=== PATIENT | male | born 1980 | race Asian ===

== ENCOUNTER 2023-12-19 09:00 | Outpatient (AMB) | payer OTHER, SELFPAY ==
[2023-12-19 09:10] VITALS: BP 130/72; PULSE 96; O2SAT 99; BMI 26.4
--- NOTE | 2023-12-19 09:10 | A.OFFPC_ITS ---
Vital Signs 12/19/23 09:10 Height 5 ft 6.54 in Weight 166 lb 0.8 oz BMI 26.4 BP 130/72 Blood Pressure Location Lt brachial Position Sitting Pulse 96 Pulse Source Pulse Oximeter Pulse Oximetry (%) 99 Oxygen Delivery Method Room Air Intake Visit Reasons: New patient-Establish Care Allergies No Known Allergies Allergy (Verified 12/19/23 09:24) Medication List - Last Reconciled 12/19/23 by Andi Sigala MD amlodipine 10 mg PO DAILY aspirin 81 mg PO DAILY atorvastatin 20 mg PO DAILY Tobacco use date assessed: 12/19/23 Dental Screening Dental Screen Date: 12/19/23 Did you have a dental visit in the last 12 months?: Yes Did you have a dental problem in the last 6 months where you did not have access to dental care?: No Was dental information given to patient?: Patient has dentist HPI New patient-Establish Care HPI Details Patient comes in today to establish care - is a new patient to the practice He reportedly went to the ER at [facility] back in April 2023 for intermittent left-sided chest pains and discomfort He initially went to urgent care and was reportedly found to have ST elevation on EKG and was advised to go to the ER for further evaluation He was eventually admitted for further evaluation Cardiac workups done at the hospital were mostly reportedly negative although his EKG suggested possible LVH He underwent coronary angiography on 04/19/2023 which revealed NO significant obstruction with only mild atherosclerotic disease noted He was then advised to quit smoking, which he has done and has not smoked since, as well as aggressive secondary risk factor modification Patient states that he currently feels okay He denies any headaches or dizziness Denies any sore throat or any recent cough / cold symptoms but patient reports that he has been experiencing frequent runny nose and clear nasal drainage over the past few years He initially thought that it was due to spring allergies or allergies to pollen but has noticed lately that he has similar symptoms often in the winter when pollens should no longer be a significant cause for allergies Denies any chest pains, no SOB No nausea/vomiting, no abdominal pain No change in bowel habits noted Needs a few of his Rx refilled Adds that he has not had any follow up labs done in a while and also has not seen cardiology for follow up since his cardiac catheterization back in April of 2023 His also adds that she has noticed that he would stop breathing briefly at times when he is asleep at night - states that she feels that this has been happening more and more often lately and she would like for him to be checked out for sleep apnea [facility] Medical History (Updated 12/22/23 @ 17:16 by Andi Sigala MD) Allergic rhinitis Overweight (BMI 25.0-29.9) Hx of coronary angiogram Nonobstructive cardiomyopathy Essential hypertension Surgical History (Updated 12/19/23 @ 09:41 by Andi Sigala MD) No pertinent past surgical history Family History (Updated 12/22/23 @ 16:55 by Andi Sigala MD) Other Family history non-contributory Social History Housing: House Patient Tobacco Use Status: Former Tobacco user Quit Date: 04/2023 service: No Current occupational status: unemployed Cognitive needs: No Hearing needs: No Vision needs: No Questionnaire PHQ-9 Over the last 2 weeks, how often have you been bothered by any of the following problems? 1. Little interest or pleasure in doing things: not at all 2. Feeling down, depressed, or hopeless: several days 3. Trouble falling or staying asleep, or sleeping too much: not at all 4. Feeling tired or having little energy: not at all 5. Poor appetite or overeating: not at all 6. Feeling bad about yourself - or that you are a failure or have let yourself or your family down: not at all 7. Trouble concentrating on things, such as reading the newspaper or watching television: not at all 8. Moving or speaking so slowly that other people could have noticed. Or the opposite - being so fidgety or restless that you have been moving around a lot more than usual: not at all 9. Thoughts that you would be better off or of hurting yourself in some way: not at all Total score: 1 Depression Screening Interpretation: Negative Depression Screening Done: Yes 28189 - PHQ-9 Billing: Yes Source: Developed by Drs. Paul Jin, Taty Turpin, Rob Oseguera and colleagues, with an educational neil from [employer]. Thrive Questionnaire Date Thrive assessed: 12/19/23 I am a: Patient What is your living situation today?: I have a steady place to live Within the past 12 months, did the food you bought not last and you didn't have the money to get more?: Never true Within the past 12 months, did you worry whether your food would run out before you got money to buy more?: Never true Do you have trouble paying for medicines?: No Do you have trouble getting transportation to medical appointments?: No Do you have trouble paying your heating and electricity bill?: No Do you have trouble taking care of your child, family member or friend?: No Do you have trouble with day-to-day activities such as bathing, preparing meals, shopping, managing finances, etc.?: No Are you currently unemployed and looking for a job?: No Are you interested in more education?: No Please select the resources that you would like help with: None Currently or been in a relationship where the following occur: no concerns reported THRIVE Score: 0 AUDIT C Alcohol Use Questionnaire (AUDIT-C) 1. How often do you have a drink containing alcohol?: Never 3. How often do you have six or more drinks on one occasion?: Never Total Score: 0 Score Reviewed/Action Taken: Yes KAROLINE-7 AMB Questionnaire KAROLINE-7 Date KAROLINE - 7 assessed: 12/19/23 Feeling nervous, anxious, or on edge: 0 = Not at all Not being able to stop or control worryin = Several days Worrying too much about different things: 0 = Not at all Trouble relaxin = Not at all Being so restless that it is hard to sit still: 0 = Not at all Becoming easily annoyed or irritable: 0 = Not at all Feeling afraid as if something awful might happen: 0 = Not at all Total KAROLINE-7 score (0-4 normal; 5-9 mild; 10-14 moderate; 15-21 severe): 1 Source: Developed by Drs. Paul Jin, Taty Turpin, Rob Oseguera and colleagues, with an educational neil from [employer]. KAROLINE-7 Assessment Billing KAROLINE-7 Assessment Tool: KAROLINE-7 Assessment 79136 Review of Systems Const Denies chills, Denies fatigue, Denies fever(s), Denies headache(s) and Reports stops breathing during sleep (on and off, per his ) ENT Denies dysphagia, Denies dizziness, Denies otalgia, Denies headache(s), Reports nasal discharge (frequent, mostly watery and clear), Denies neck pain, Denies odynophagia and Denies sore throat Card Denies chest pain, Denies palpitations and Denies dyspnea Resp Denies cough and Denies dyspnea GI Denies abdominal pain, Denies constipation, Denies dysphagia, Denies heartburn, Denies diarrhea, Denies nausea, Denies odynophagia and Denies vomiting Denies dysuria, Denies nocturia and Denies urinary frequency Musc Denies back pain and Denies neck pain Skin/Breast Denies rash Neuro Denies dizziness and Denies headache(s) Endo Denies fatigue and Denies palpitations Physical exam (Primary Care) Vital Signs: Last Vital Signs Pulse 96 12/19/23 09:10 BP 130/72 12/19/23 09:10 Pulse Ox 99 12/19/23 09:10 Oxygen Delivery Method Room Air 12/19/23 09:10 BMI result Body Mass Index 26.4 Tobacco/Smoking Status: Tobacco use Status Tobacco use date assessed 12/19/23 12/19/23 09:16 Patient Tobacco Use Status Former Tobacco user 12/19/23 09:16 PHQ-9: PHQ-9 Score PHQ-9: Total score 1 12/19/23 10:10 Depression Screening Interpretation: Negative Thrive Assessment: Date of Thrive Assessment Date Thrive assessed 12/19/23 12/19/23 09:16 Currently or been in a relationship where the following occur: no concerns reported Const General: no acute distress and alert HENMT Ears: TM's normal bilaterally and EAC's normal Throat: Yes posterior oropharynx normal and Yes tonsils normal (no TP congestion) Neck Neck: Yes no lymphadenopathy and Yes supple Thyroid: Thyroid normal Resp Auscultation: clear to auscultation bilaterally, no rales and no wheezes Cardio Rate: regular rate Rhythm: regular rhythm Heart sounds: no murmurs GI Palpation (GI): Soft to palpation and nontender Auscultation: normal bowel sounds General: Yes no CVA tenderness Back/Spine/Pelvis Back: no CVA tenderness Thoracic/Lumbar Spine: No lumbar spinal tenderness Skin Rashes: no rashes Extrem General: Yes no clubbing, cyanosis or edema Assessment and Plan Assessment & Plan (1) Nonobstructive cardiomyopathy: Code(s): I42.8 - Other cardiomyopathies Plan: Coronary angiography done on 04/19/2023 revealed mild coronary disease with no significant obstruction Continue aggressive secondary risk factor modification, including blood pressure and cholesterol He has since quit smoking and states that he continues to work on his diet and tries to stay active when he can and his time allows as 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 [employer] Reinforced low cholesterol/cardiac diet Continue Atorvastatin 20 mg QD Will have him recheck his labs KETAN as he has not had any follow up labs done since April 2023 He also has reportedly not seen cardiology since his hospital admission last year and will refer him to cardiology for follow up and continuing management - patient prefers to go to [facility] Cardiology as it is closer to home Will also have him recheck his labs and fasting lipids in 4 months for follow up (2) Essential hypertension: Code(s): I10 - Essential (primary) hypertension Plan: Reinforced low sodium diet - goal is systolic BP of 120 mm or less Continue Amlodipine 10 mg QD Patient is instructed to continue monitoring his blood pressure regularly (3) Allergic rhinitis: Code(s): J30.9 - Allergic rhinitis, unspecified Qualifiers: Allergic rhinitis trigger: unspecified Allergic rhinitis seasonality: non-seasonal Qualified Code(s): J30.89 - Other allergic rhinitis Plan: Will start him on Loratadine 10 mg QD PRN - is advised that he can get this OTC if his insurance declines to cover this Rx (4) Witnessed apneic spells: Code(s): R06.81 - Apnea, not elsewhere classified Plan: Will refer him to Sleep Medicine (at [facility] - per request) for further evaluation and management of his symptoms, which are suggestive of ESTEBAN (5) Overweight (BMI 25.0-29.9): Code(s): E66.3 - Overweight Plan: Reinforced diet/exercise as tolerated/lose weight Plan Follow up in 4 months Orders: Orders Comprehensive [place]. Panel Fast 12/19/23 E78.00 - Pure hypercholesterolemia, unspecified, I42.8 - Other cardiomyopathies Lipid Panel 12/19/23 E78.00 - Pure hypercholesterolemia, unspecified, I42.8 - Other cardiomyopathies TSH reflex Free T4 12/19/23 E78.00 - Pure hypercholesterolemia, unspecified, I42.8 - Other cardiomyopathies UA CC w/rflx Micro + Cult 12/19/23 I42.8 - Other cardiomyopathies, R30.0 - Dysuria Lipid Panel 4 Months E78.00 - Pure hypercholesterolemia, unspecified Complete Blood Count Auto Diff 12/19/23 D64.9 - Anemia, unspecified, I42.8 - Other cardiomyopathies Vitamin D 25-OH Total 12/19/23 E55.9 - Vitamin D deficiency, unspecified, I42.8 - Other cardiomyopathies Comprehensive [place]. Panel Fast 4 Months E78.00 - Pure hypercholesterolemia, unspecified Referrals Cardiology Referral I10 - Essential (primary) hypertension, I42.8 - Other cardiomyopathies Sleep Medicine Referral R06.81 - Apnea, not elsewhere classified, R06.83 - Snoring, Z82.0 - Family history of epilepsy and other diseases of the nervous system Medications: New atorvastatin 20 mg PO DAILY 90 tabs 1RF 90 days loratadine 10 mg PO DAILY PRN 90 tabs 3RF allergy symptoms 90 days J30.9 - Allergic rhinitis, unspecified amlodipine 10 mg PO DAILY 90 tabs 1RF 90 days Coding Level of Care Code New Pt Level 4 (92232) Diagnoses Nonobstructive cardiomyopathy I42.8 Essential hypertension I10 Non-seasonal allergic rhinitis, unspecified trigger J30.89 Allergic rhinitis trigger: unspecified Allergic rhinitis seasonality: non-seasonal Witnessed apneic spells R06.81 Overweight (BMI 25.0-29.9) E66.3 Additional Codes KAROLINE-7 Assessment Billing - KAROLINE-7 Assessment Tool: KAROLINE-7 Assessment [id number] ([id number])
== END 2023-12-19 10:15 | disposition home or self-care (01) ==
PROVIDERS: PCP Internal Medicine; Visit Provider Internal Medicine
DX: I42.8 Other cardiomyopathies (principal); I10 Essential (primary) hypertension; J30.89 Other allergic rhinitis; R06.81 Apnea, not elsewhere classified; E66.3 Overweight
CPT/HCPCS: 99204

== ENCOUNTER 2023-12-23 10:37 | Outpatient (REF) | payer OTHER, SELFPAY ==
[2023-12-23 10:46] LABS: MANUAL DIFF FLAG NO
[2023-12-23 11:13] LABS: Basophils Percent Auto 0.4 % (0-2); Eosinophils Absolute Auto 0.2 X10*3/uL (0.0-0.4); Eosinophils Percent Auto 3.5 % (0-4); Hematocrit 45.9 % (42.0-52.0); Hemoglobin 15.6 g/dl (14.0-18.0); Imm Gran Abs Auto 0.02 X10*3/uL (0.00-0.03); Imm Gran Pct Auto 0.3 % (0.0-0.4); Lymphocytes Absolute Auto 1.7 X10*3/uL (1.2-4.9); Mean Corpuscular Hemoglobin 29.5 pg (27.0-33.0); Mean Corpuscular Volume 86.9 fL (80.0-98.0); Mean Platelet Volume 9.2 fL (9.4-12.4); Monocytes Absolute Auto 0.5 X10*3/uL (0.1-1.2); Monocytes Percent Auto 6.5 % (2-11); Neutrophils Absolute Auto 4.5 x10*3/uL (2.0-8.3); Neutrophils Percent Auto 64.3 % (45-73); Platelet Count 246 X10*3/uL (160-400); Red Blood Count 5.28 X10*6/uL (4.60-5.80); Red Cell Distribution Width 12.3 % (11.0-16.0)
[2023-12-23 11:15] LABS: Appearance Urine Clear; Color Urine Yellow; Glucose Urine UA Negative (Negative); Leukocyte Esterase Urine Negative (Negative); Nitrite Urine Negative (Negative); PH 5.5 (5.0-9.0); Urine Blood Negative (Negative); Urine Ketones Negative (Negative); Urine Protein Negative (Neg-Trace)
[2023-12-23 11:53] LABS: Alanine Aminotransferase 31 U/L (0-40); Albumin Level 4.3 g/dL (3.5-5.0); Alkaline Phosphatase 62 U/L (39-117); Anion Gap 10 (12-20); Aspartate Amino Transferase 23 U/L (5-37); Bilirubin Total 0.9 mg/dL (0.0-1.0); Blood Urea Nitrogen 16 mg/dL (9-16); Calcium 9.1 mg/dL (8.4-10.2); Carbon Dioxide 25 mmol/L (22-29); Chloride 109 mmol/L (96-108); Cholesterol 129 mg/dL (<200); Estimated Glomerular Filt Rate > 60; Glucose Fasting 92 mg/dL (60-99); HDL Cholesterol 46 mg/dL (>40); LDL Cholesterol Calculated 68 mg/dL (<100); Potassium 4.1 mmol/L (3.3-5.1); Sodium 140 mmol/L (135-145); Total Protein 7.1 g/dL (6.5-8.0); Triglycerides 77 mg/dL (<150)
[2023-12-23 12:09] LABS: TSH reflex Free T4 1.15 uIU/mL (0.32-4.0); Vitamin D 25-OH Total 23.2 ng/mL (>30)
== END 2023-12-23 10:38 | disposition home or self-care (01) ==
LOC: HO.LAB 10:37
PROVIDERS: PCP Internal Medicine; Visit Provider Internal Medicine
DX: E78.00 Pure hypercholesterolemia, unspecified (principal); I42.8 Other cardiomyopathies; D64.9 Anemia, unspecified; R30.0 Dysuria; E55.9 Vitamin D deficiency, unspecified
CPT/HCPCS: 36415; 80053; 80061; 81003; 82306; 84443; 85025

== ENCOUNTER 2024-05-11 08:56 | Outpatient (AMB) | payer OTHER, SELFPAY ==
[2024-05-11 08:59] VITALS: BP 130/86; PULSE 70; O2SAT 98; BMI 25.7
--- NOTE | 2024-05-11 08:59 | MHC.PC.OV ---
Vital Signs 05/11/24 08:59 Height 5 ft 6.54 in Weight 162 lb BMI 25.7 BP 130/86 Blood Pressure Location Lt brachial Position Sitting Pulse 70 Pulse Source Pulse Oximeter Pulse Oximetry (%) 98 Oxygen Delivery Method Room Air Intake Visit Reasons: 4mof\u Heel Scorer Required: No Accompanied by: Self / Same As Patient Allergies No Known Allergies Allergy (Verified 05/11/24 09:24) Medication List - Last Reconciled 05/11/24 by Andi Sigala MD amlodipine 10 mg PO DAILY 90 days aspirin 81 mg PO DAILY atorvastatin 20 mg PO DAILY 90 days clotrimazole-betamethasone 1-0.05 % 1 appl topical BID 2 weeks loratadine 10 mg PO DAILY PRN 90 days Tobacco use date assessed: 05/11/24 Dental Screening Dental Screen Date: 05/11/24 Did you have a dental visit in the last 12 months?: Yes Did you have a dental problem in the last 6 months where you did not have access to dental care?: No Was dental information given to patient?: Patient has dentist HPI 4mof\u HPI Details Patient comes in today for his follow up visit He went to the ER in [facility] about a month ago when he woke up with sudden onset of right flank pain Work ups done revealed a small 4 mm right-sided kidney without any significant hydropnephrosis and due to the size of his stone, was recommended conservative management He was sent home with Rx for Tamsulosin for a few weeks and was advised that he should be able to notice it when he passes out the stone although patient has not felt anything since States that his right flank pain has completely cleared up and is wondering that since he did not feel himself passing out the stone if he should go and get checked again for the stone Adds that he has been experiencing recurrent muscle cramps in his legs lately, mostly at night time He also broke out in some hyperpigmented rash over his left upper back and on the left upper torso recently - states that the rash did not itch or hurt He was supposedly prescribed some Lotrisone cream, which he states cleared up the rash, and is wondering if he can get another Rx for this for future use PRN States that he feels okay otherwise and has a follow up appt with cardiology coming up in a couple of weeks He also recalls being scheduled to see Sleep Medicine next month (June 2024) about the possibility that he may have sleep apnea He denies any headaches or dizziness Denies any chest pains, no SOB No nausea/vomiting, no abdominal pain No change in bowel habits noted He was not able to get his follow up labs done prior to his visit today although he states that he had labs done right after his last visit here in December 2023 - would like to know how he did on his labs back then He is also inquiring if he needs to continue taking low dose Aspirin daily as he supposedly read somewhere that daily Aspirin can contribute to problems with [facility] Medical History Vitamin D deficiency Allergic rhinitis Overweight (BMI 25.0-29.9) Hx of coronary angiogram Nonobstructive cardiomyopathy Essential hypertension Surgical History No pertinent past surgical history Family History Other Family history non-contributory Social History Housing: House Patient Tobacco Use Status: Former Tobacco user service: No Current occupational status: unemployed Cognitive needs: No Hearing needs: No Vision needs: No Questionnaire PHQ-9 Over the last 2 weeks, how often have you been bothered by any of the following problems? 1. Little interest or pleasure in doing things: not at all 2. Feeling down, depressed, or hopeless: several days 3. Trouble falling or staying asleep, or sleeping too much: not at all 4. Feeling tired or having little energy: not at all 5. Poor appetite or overeating: not at all 6. Feeling bad about yourself - or that you are a failure or have let yourself or your family down: not at all 7. Trouble concentrating on things, such as reading the newspaper or watching television: not at all 8. Moving or speaking so slowly that other people could have noticed. Or the opposite - being so fidgety or restless that you have been moving around a lot more than usual: not at all 9. Thoughts that you would be better off or of hurting yourself in some way: not at all Total score: 1 Depression Screening Interpretation: Negative Depression Screening Done: Yes 40728 - PHQ-9 Billing: Yes Source: Developed by Drs. Paul Jin, Taty Turpin, Rob Oseguera and colleagues, with an educational neil from [employer]. Thrive Questionnaire Date Thrive assessed: 05/11/24 I am a: Patient What is your living situation today?: I have a steady place to live Within the past 12 months, did the food you bought not last and you didn't have the money to get more?: Never true Within the past 12 months, did you worry whether your food would run out before you got money to buy more?: Never true Do you have trouble paying for medicines?: No Do you have trouble getting transportation to medical appointments?: No Do you have trouble paying your heating and electricity bill?: No Do you have trouble taking care of your child, family member or friend?: No Do you have trouble with day-to-day activities such as bathing, preparing meals, shopping, managing finances, etc.?: No Are you currently unemployed and looking for a job?: No Are you interested in more education?: No Please select the resources that you would like help with: None Currently or been in a relationship where the following occur: No concerns reported THRIVE Score: 0 AUDIT C Alcohol Use Questionnaire (AUDIT-C) 1. How often do you have a drink containing alcohol?: Never 3. How often do you have six or more drinks on one occasion?: Never Total Score: 0 Score Reviewed/Action Taken: Yes KAROLINE-7 AMB Questionnaire KAROLINE-7 Date KAROLINE - 7 assessed: 05/11/24 Feeling nervous, anxious, or on edge: 0 = Not at all Not being able to stop or control worryin = Several days Worrying too much about different things: 0 = Not at all Trouble relaxin = Not at all Being so restless that it is hard to sit still: 0 = Not at all Becoming easily annoyed or irritable: 0 = Not at all Feeling afraid as if something awful might happen: 0 = Not at all Total KAROLINE-7 score (0-4 normal; 5-9 mild; 10-14 moderate; 15-21 severe): 1 Source: Developed by Drs. Paul Jin, Taty Turpin, Rob Oseguera and colleagues, with an educational neil from [employer]. KAROLINE-7 Assessment Billing KAROLINE-7 Assessment Tool: KAROLINE-7 Assessment 20966 Review of Systems Const Denies chills, Denies fatigue, Denies fever(s) and Denies headache(s) ENT Denies dysphagia, Denies dizziness, Denies otalgia, Denies headache(s), Denies neck pain, Denies odynophagia and Denies sore throat Card Denies chest pain, Denies palpitations and Denies dyspnea Resp Denies cough and Denies dyspnea GI Denies abdominal pain, Denies constipation, Denies dysphagia, Denies heartburn, Denies diarrhea, Denies nausea, Denies odynophagia and Denies vomiting Denies hematuria, Denies dysuria, Denies nocturia and Denies urinary frequency Musc Denies back pain, Reports muscle cramps (recurrent lately, especially at night) and Denies neck pain Skin/Breast Reports rash (on and off - see HPI) Neuro Denies dizziness and Denies headache(s) Endo Denies fatigue and Denies palpitations Physical exam (Primary Care) Vital Signs: Last Vital Signs Pulse 70 05/11/24 08:59 BP 130/86 05/11/24 08:59 Pulse Ox 98 05/11/24 08:59 Oxygen Delivery Method Room Air 05/11/24 08:59 BMI result Body Mass Index 25.7 Tobacco/Smoking Status: Tobacco use Status Tobacco use date assessed 05/11/24 05/11/24 09:05 Patient Tobacco Use Status Former Tobacco user 05/11/24 09:05 PHQ-9: PHQ-9 Score PHQ-9: Total score 1 05/11/24 09:05 Depression Screening Interpretation: Negative Thrive Assessment: Date of Thrive Assessment Date Thrive assessed 05/11/24 05/11/24 09:05 Currently or been in a relationship where the following occur: No concerns reported Const General: no acute distress and alert HENMT Ears: TM's normal bilaterally and EAC's normal Throat: Yes posterior oropharynx normal and Yes tonsils normal (no TP congestion) Neck Neck: Yes no lymphadenopathy and Yes supple Thyroid: Thyroid normal Resp Auscultation: clear to auscultation bilaterally, no rales and no wheezes Cardio Rate: regular rate Rhythm: regular rhythm Heart sounds: no murmurs GI Palpation (GI): Soft to palpation and nontender Auscultation: normal bowel sounds General: Yes no CVA tenderness Back/Spine/Pelvis Back: no CVA tenderness Thoracic/Lumbar Spine: No lumbar spinal tenderness Skin Rashes: no rashes Extrem General: Yes no clubbing, cyanosis or edema Results Reviewed Results Reviewed: Laboratory Tests 12/23/23 10:45 WBC 7.0 Hgb 15.6 Hct 45.9 Plt Count 246 Sodium 140 Potassium 4.1 Creatinine 0.67 Estimated GFR > 60 Fasting Glucose 92 AST 23 ALT 31 Triglycerides 77 Cholesterol 129 LDL Cholesterol, Calc 68 HDL Cholesterol 46 25-OH Vitamin D Total 23.2 L TSH 1.15 Ur Specific Hobbs 1.020 Urine Protein Negative Urine Glucose (UA) Negative Urine Blood Negative Urine Nitrite Negative Ur Leukocyte Esterase Negative Assessment and Plan Assessment & Plan (1) Nonobstructive cardiomyopathy: Code(s): I42.8 - Other cardiomyopathies Plan: Coronary angiography done on 04/19/2023 revealed mild coronary disease with no significant obstruction Continue aggressive secondary risk factor modification, including blood pressure and cholesterol He has since quit smoking and states that he continues to work on his diet and tries to stay active when he can and when time allows as 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 [employer] Results of his labs done back in December 2023 reviewed and discussed with patient - he is advised that his cholesterol levels then were at goal, with his LDL cholesterol at 68 mg/dl Reinforced low cholesterol/cardiac diet Continue Atorvastatin 20 mg QD Will also have him recheck his labs and fasting lipids in 4 months for follow up States that he has a follow up appointment with [facility] coming up in a few weeks - is advised to remind the cardiology office to send over copies of his OV notes and all related information as soon as possible after his visit(s) He is also advised to speak to cardiology at his visit as to whether they think he can stop taking his low dose Aspirin, which he states he would like to do if possible (2) Essential hypertension: Code(s): I10 - Essential (primary) hypertension Plan: Reinforced low sodium diet - goal is systolic BP of 120 mm or less Continue Amlodipine 10 mg QD Patient is reminded to continue monitoring his blood pressure regularly (3) Allergic rhinitis: Code(s): J30.9 - Allergic rhinitis, unspecified Qualifiers: Allergic rhinitis trigger: unspecified Allergic rhinitis seasonality: non-seasonal Qualified Code(s): J30.89 - Other allergic rhinitis Plan: Continue Loratadine 10 mg QD PRN (4) Vitamin D deficiency: Code(s): E55.9 - Vitamin D deficiency, unspecified Plan: He is also advised that his Vitamin D level was low on his labs done back in December 2023 Will start him on Vitamin D3 2000 units QD (5) Witnessed apneic spells: Code(s): R06.81 - Apnea, not elsewhere classified Plan: He was previously referred to Sleep Medicine (at [facility] - per request) for further evaluation and management of his symptoms, which are suggestive of ESTEBAN and he is now scheduled to be seen by [facility] Sleep Medicine sometime next month (June 2024) (6) Nocturnal leg cramps: Code(s): G47.62 - Sleep related leg cramps Plan: Will send patient to get some labs done KETAN for further evaluation - will just have patient use his current orders (updated) Discussed that this can be due to some electrolyte abnormalities and dehydration or inadequate fluid intake can also contribute to this If his labs come back normal, can consider trial of oral Magnesium supplements or muscle relaxants at bedtime (7) Calculus of urinary tract: Code(s): N20.9 - Urinary calculus, unspecified Qualifiers: Urinary calculus location: upper urinary tract Qualified Code(s): N20.9 - Urinary calculus, unspecified Plan: This was discovered on work ups done at the ER at [facility] when he presented there last month (April 2024) with sudden onset of right flank pain Patient states that his symptoms have completely subsided and have not recurred since He is advised to continue to increase his oral fluid intake, which may help minimize recurrence of kidney stones (8) Dermatitis: Code(s): L30.9 - Dermatitis, unspecified Plan: Advised that he likely has tinea (suspect tinea versicolor, which may require a different Rx for Tx), based on the pictures of his rash that he showed on his phone For now, will go ahead and refill his Rx for Lotrisone cream BID, per request (9) Overweight (BMI 25.0-29.9): Code(s): E66.3 - Overweight Plan: Reinforced diet/exercise as tolerated/lose weight Plan Follow up in 6 months Orders: Orders Complete Blood Count Auto Diff 6 Months D64.9 - Anemia, unspecified Comprehensive [place]. Panel Fast 6 Months E78.00 - Pure hypercholesterolemia, unspecified Magnesium Today E83.42 - Hypomagnesemia Lipid Panel 6 Months E78.00 - Pure hypercholesterolemia, unspecified UA CC w/rflx Micro + Cult 6 Months R30.0 - Dysuria UA CC w/rflx Micro + Cult Today R10.9 - Unspecified abdominal pain, R30.0 - Dysuria Medications: New clotrimazole-betamethasone 1-0.05 % 1 appl topical BID 2 weeks 45 grams 1RF Coding Level of Care Code Est Pt Level 4 (32118) Diagnoses Nonobstructive cardiomyopathy I42.8 Essential hypertension I10 Non-seasonal allergic rhinitis, unspecified trigger J30.89 Allergic rhinitis trigger: unspecified Allergic rhinitis seasonality: non-seasonal Vitamin D deficiency E55.9 Witnessed apneic spells R06.81 Nocturnal leg cramps G47.62 Calculus of upper urinary tract N20.9 Urinary calculus location: upper urinary tract Dermatitis L30.9 Overweight (BMI 25.0-29.9) E66.3 Additional Codes KAROLINE-7 Assessment Billing - KAROLINE-7 Assessment Tool: KAROLINE-7 Assessment [id number] ([id number])
== END 2024-05-11 09:31 | disposition home or self-care (01) ==
PROVIDERS: PCP Internal Medicine; Visit Provider Internal Medicine
DX: I42.8 Other cardiomyopathies (principal); I10 Essential (primary) hypertension; J30.89 Other allergic rhinitis; E55.9 Vitamin D deficiency, unspecified; R06.81 Apnea, not elsewhere classified; G47.62 Sleep related leg cramps; N20.9 Urinary calculus, unspecified; L30.9 Dermatitis, unspecified; E66.3 Overweight
CPT/HCPCS: 99214

== ENCOUNTER 2024-05-11 09:36 | Outpatient (REF) | payer OTHER, SELFPAY ==
[2024-05-11 10:48] LABS: Appearance Urine Clear; Color Urine Yellow; Glucose Urine UA Negative (Negative); Leukocyte Esterase Urine Negative (Negative); Nitrite Urine Negative (Negative); Specific Gravity - Urine 1.015 (1.005-1.025); Urine Blood Negative (Negative); Urine Ketones Negative (Negative); Urine Protein Negative (Neg-Trace)
[2024-05-11 11:10] LABS: Alanine Aminotransferase 33 U/L (0-40); Albumin Level 4.4 g/dL (3.5-5.0); Alkaline Phosphatase 63 U/L (39-117); Anion Gap 14 (12-20); Aspartate Amino Transferase 18 U/L (5-37); Bilirubin Total 1.3 mg/dL (0.0-1.0); Blood Urea Nitrogen 17 mg/dL (9-16); Calcium 9.4 mg/dL (8.4-10.2); Carbon Dioxide 26 mmol/L (22-29); Chloride 106 mmol/L (96-108); Cholesterol 131 mg/dL (<200); Estimated Glomerular Filt Rate > 60; Glucose Fasting 101 mg/dL (60-99); HDL Cholesterol 48 mg/dL (>40); LDL Cholesterol Calculated 67 mg/dL (<100); Potassium 3.8 mmol/L (3.3-5.1); Sodium 142 mmol/L (135-145); Total Protein 7.2 g/dL (6.5-8.0); Triglycerides 84 mg/dL (<150)
== END 2024-05-11 09:37 | disposition home or self-care (01) ==
LOC: HO.LAB 09:36
PROVIDERS: PCP Internal Medicine; Visit Provider Internal Medicine
DX: E78.00 Pure hypercholesterolemia, unspecified (principal); R30.0 Dysuria; R10.9 Unspecified abdominal pain
CPT/HCPCS: 36415; 80053; 80061; 81003

== ENCOUNTER 2024-07-06 08:06 | Outpatient (AMB) | payer OTHER, SELFPAY ==
[2024-07-06 08:11] VITALS: BMI 26.3
--- NOTE | 2024-07-06 08:11 | MHC.OFFVIS ---
Vital Signs 07/06/24 08:11 Height 5 ft 6 in Weight 163 lb BMI 26.3 Intake Visit Reasons: INP-ESTEBAN Intake Note: Patient presents for ESTEBAN, Patient snores and stops breathing for 30 seconds. Allergies No Known Allergies Allergy (Verified 07/06/24 08:15) Medication List - Last Reconciled 07/06/24 by Marilu Hernandez, COMPUTER SECURITY MANAGER amlodipine 10 mg PO DAILY 90 days aspirin 81 mg PO DAILY atorvastatin 20 mg PO DAILY 90 days clotrimazole-betamethasone 1-0.05 % 1 appl topical BID 2 weeks loratadine 10 mg PO DAILY PRN 90 days HPI Comments Details: 43-yr-old male presents for new in-person patient visit for sleep consultation. Pt is accompanied by his , July, who pt requests translates Mandarin for him. Patient's reports she has noticed pt snoring, having apneas, however she recently learned that snoring can be associated w/ sleep apnea so they would like to address this now. also reports last Apr 2023, pt was dx'd w/ mild AZ after presenting to [facility] ER for chest pain. Review of [facility] records shows discharge dx of Chest pain, Nonobstructive?CAD?per cath on 04/19, HTN, Nicotine abuse, with work-up of ?cardiac cath, nonobstructive atherosclerotic disease, EKG with possible LVH, biphasic T waves in anterior leads, Chest XR- nonacute, Troponin negative x4, NT proBNP normal, TSH normal. He was started on ASA, atorvastatin, prn NTG, and continused on Amlodipine. Pt has since stopped smoking. He has just recently established care w/ a acetone recovery worker at [facility], who has advised cardiac MRI/echocradiogram. notes that they had some difficulty w/ f/u care d/t insurance/PCP changes. Sleep history questionnaire: Have you ever been diagnosed with a sleep disorder? No Have you ever had a sleep study in the past? No Have you ever been treated for a sleep disorder? No Do you take medications/supplements for a sleep disorder? No Current sleep symptom questionnaire: Pt reports snoring, nocturnal gasping, apneas, witnessed apneas. Pt reports some daytime tiredness, may need to take naps, but he is constantly active d/t his work/life- thus rarely dozes off unintentionally. states pt does not sit long enough to doze off. Pt reports nocturnal dry mouth, morning dry mouth. Pt reports nocturia- occasional- falls back asleep ok Pt reports nocturnal leg cramps Sleep hygiene questionnaire: Occupation status: Works in: [employer]. 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 Usual bedtime is at 12am Usual time to fall asleep 12:30am Usual wake-up time 7:30-8am Usual out of bed time is at 7:30am-8am Naps: Takes scheduled naps Sleep environment: comfortable, cool, dark, quiet, Electronic use in bedroom: Phone Exercise: no regular exercise. However active during his work day. Caffeine or other stimulants: 1 cups of coffee per day in am only. [facility] Medical History Vitamin D deficiency Allergic rhinitis Overweight (BMI 25.0-29.9) Hx of coronary angiogram Nonobstructive cardiomyopathy Essential hypertension Surgical History No pertinent past surgical history Family History Other Family history non-contributory Social History Housing: House Patient Tobacco Use Status: Former Tobacco user service: No Current occupational status: unemployed Cognitive needs: No Hearing needs: No Vision needs: No Physical Exam Vital Signs: BMI result Body Mass Index 26.3 Const General: no acute distress Orientation/consciousness: patient oriented x3 HEENT Other: Mallampati stage 4 Bilateral TMJ tightness, crepitus. Left masseter hypertrophy. Mild wearing of lower frontal teeth. Resp Effort & Inspection: normal respiratory effort and able to speak in complete sentences Auscultation: clear to auscultation bilaterally Cardio Rate: regular rate Rhythm: regular rhythm Neuro General: patient oriented x3 Psych Mental Status: mental status grossly normal Speech and movement: Clear speech present Attitude: cooperative Assessment & Plan Assessment & Plan (1) Snoring: Code(s): R06.83 - Snoring Category: Medical (2) Witnessed apneic spells: Code(s): R06.81 - Apnea, not elsewhere classified Category: Medical (3) Nocturnal leg cramps: Code(s): G47.62 - Sleep related leg cramps Category: Medical Plan Pt is advised to undergo sleep study to assess for sleep apnea in setting of non-obstructive sleep apnea: HST. Upon review of sleep study results, will f/u with pt to discuss results and appropriate treatment options. Trial Magnesium 400mh qhs- may help leg cramps and bruxism as well. Trial OTC mouth guard for bruxism. Pt seen in c/w Dr Alice Tee Will follow-up upon review of above and patient to follow-up in clinic in 6 months or sooner prn. Orders: Orders RT home sleep study Today I10 - Essential (primary) hypertension, I42.8 - Other cardiomyopathies, R06.81 - Apnea, not elsewhere classified, R06.83 - Snoring Medications: New magnesium oxide may hold for loose stools 400 mg PO BEDTIME 30 days 30 tabs 6RF Coding Level of Care Code New Pt Level 4 (04971) Diagnoses Snoring R06.83 Witnessed apneic spells R06.81 Nocturnal leg cramps G47.62
== END 2024-07-06 09:09 | disposition home or self-care (01) ==
LOC: HO.HSMS 08:07
PROVIDERS: PCP Internal Medicine; Visit Provider Nurse Practitioner Family
DX: R06.83 Snoring (principal); R06.81 Apnea, not elsewhere classified; G47.62 Sleep related leg cramps
CPT/HCPCS: 99204

== ENCOUNTER → 2024-07-06 08:06 | Outpatient (BNVA) | payer OTHER, SELFPAY | PROVIDERS: PCP Internal Medicine; Visit Provider Nurse Practitioner Family | DX: R06.83 Snoring (principal); R06.81 Apnea, not elsewhere classified; G47.62 Sleep related leg cramps | CPT/HCPCS: 99202 ==

== ENCOUNTER → 2024-08-18 09:45 | Outpatient (REF) | payer OTHER, SELFPAY | LOC: HO.SL 09:45 | PROVIDERS: PCP Internal Medicine; Visit Provider Nurse Practitioner Family | DX: R06.83 Snoring (principal); R06.81 Apnea, not elsewhere classified | CPT/HCPCS: 95806 ==

== ENCOUNTER → 2024-10-12 20:30 | Outpatient (REF) | payer OTHER, SELFPAY ==
--- OUTSIDE RECORDS SUMMARY | 2024-10-12 20:48 | XMS_ITS | Clinical Summary ---
Author Organization [facility] it Address [address] [place] [address] Care Team Providers Care Sizer Machine Name Role Phone Unavailable Primary Care Provider Unavailabl e Social History Tobacco Use Types Packs/Day Years Used Date Smoking Tobacco: Never Assessed Sex and Gender Information Value Date Recorded Sex Assigned at Not on file Legal Sex Male 10:36 AM EST Gender Identity Not on file Sexual Orientation Not on file Plan of Treatment Health Maintenance Due Date Last Done Comments DTaP,Tdap,and Td Vaccines (1 - Tdap) 2000 Hepatitis B Vaccines (1 of 3 - 19+ 3-dose series) 2000 Cholesterol Screening (Lipid Panel) 07/31/2022 Depression Screening 07/31/2022 HIV Screening 07/31/2022 Hepatitis C Screening 07/31/2022 Social Influencers of Health Screening 07/31/2022 COVID-19 Vaccine (2023-2 5 season) 2024 Influenza Vaccine (#1) 2024 HIB Vaccines Aged Out No longer eligi ble based on patient's age to complete this topic HPV Vaccines Aged Out No longer eligi ble based on patient's age to complete this topic Hepatitis A Vaccines Aged Out No long er eligible based on patient's age to complete this topic IPV Vaccines Aged Out No longer eligi ble based on patient's age to complete this topic MMR Vaccines Aged Out No longer eligi ble based on patient's age to complete this topic Meningococcal ACWY Vaccine Aged Out N o longer eligible based on patient's age to complete this topic Pneumococcal Vaccine: Pediat rics (0 to 5 Years) and At-Risk Patients (6 to 64 Years) Aged Out No longer eligible b ased on patient's age to complete this topic RSV Immunization Patients Un bryant 20 months Aged Out No longer eligible b ased on patient's age to complete this topic Varicella Vaccines Aged Out No longer eligible based on patient's age to complete this topic
--- OUTSIDE RECORDS SUMMARY | 2024-10-12 20:48 | XMS_ITS ---
Author Organization [facility] Address [address] [place] [address] Care Team Providers Care Line Servicer Name Role Phone YVONNE PARKER Primary Care Provider [phone] Medications Medication SIG (Take, Route, Frequency, Duration) Notes Start Date End Date Status Atorvastatin Calcium 20 MG 1 tablet Oral ly Once a day for 90 days Active amLODIPine Besylate 10 MG TAKE 1 TABLET BY MOUTH EVERY DAY for 90 days Active Encounters Encounter Location Date Provider Diagnosis [facility] [address] [place] [address] 07/29/2023 YVONNE PARKER Dyslipidemia (high LDLand low HDL) E78.5 Assessments Encounter Date Diagnosis (ICD Code) Assessment Notes Treatment Notes Treatment Clinical Notes Section Notes 07/29/2023 Dyslipidemia (high LDL; low HDL) (ICD-10 - E78.5) Will check lipid 04/30/23 Started on atorvastatin at [facility] Plan Of Treatment Medication Medication Name Sig Start Date Stop Date Notes Atorvastatin Calcium 20 MG 1 tablet Oral ly Once a day for 90 days amLODIPine Besylate 10 MG TAKE 1 TABLET BY MOUTH EVERY DAY for 90 days Progress Notes * GRZEGORZ, VidaDOB:1980 ( 42 yo M)Acc No.[id number]:07/29/2023 Patient:?Vida Garcia :1980???Age:42 Y???Sex:Male Address:[address] [place], [address] * Refills? Refill amLODIPine Besylate Tablet, 10 MG, 90 Tablet, TAKE 1 TABLET BY MOUTH EVERY DAY, 90 days, Refills=4 Refill Atorvastatin Calcium Tablet, 20 MG, Orally, 90 Tablet, 1 tablet, Once a day, 90 days, Refills=4 * true * Date:? Generated for Patsy cummings/Matthew/Allan on:?10/12/2024 08:48 PM EST
--- OUTSIDE RECORDS SUMMARY | 2024-10-12 20:49 | XMS_ITS | Patient Health Record ---
Author Organization [facility] Address [address] [address] [place] [address] Care Team Providers Care Advertising Representative Name Role Phone YVONNE PARKER Primary Care Provider Allergies No Known Allergies Reason For Referral No Information Medications Medication SIG (Take, Route, Frequency, Duration) Notes Start Date End Date Status Multivitamin - 1 tablet Orally Once a day for 30 day(s) Active Permethrin 5 % 1 application Externally Two times a Week as directed for 7 days Not-Taking Ibuprofen 800 MG 1 tablet Orally Three times a day for 30 day(s) 03/02/2021 Not-Taking Diclofenac Sodium 75 MG 1 tablet Orally Once a day for 30 prn Not-Taking Aspir-81 81 MG 1 tablet Orally Once a day for 90 Active Tylenol 325 MG 1 tablet as needed Orally every 4 hrs Not-Taking Nicotine Polacrilex 4 MG 1 piece chew for 30 minutes as needed Mouth/Throat 12 times a day for 30 days Not-Taking Atorvastatin Calcium 20 MG 1 tablet Orally Once a day for 90 days Active buPROPion HCl 100 MG 1 tablet Orally Twice a day for 30 day(s) 12/22/2018 Not-Taking Omeprazole 20 MG 1 capsule Orally Once a day for 90 day(s) 12/07/2015 Not-Taking Cyclobenzaprine HCl 5 MG 1 tablet Orally Three times a day for 30 day(s) 12/07/2015 Not-Taking amLODIPine Besylate 10 MG TAKE 1 TABLET BY MOUTH EVERY DAY for 90 Active Cyclobenzaprine HCl 10 MG 1 tablet at bedtime as needed Orally Once a day for 30 days Not-Taking Transderm-Scop (1.5 MG) 1 MG/3DAYS 1 patch to skin as needed Transdermal EVERY 3 DAYS for 30 day(s) 10/25/2016 Not-Taking Meloxicam 15 MG 1 tablet Orally Once a day for 30 days Not-Taking Naproxen 500 MG 1 tablet as needed Orally every 12 hrs 12/07/2015 Not-Taking Fluticasone Furoate 27.5 MCG/SPRAY 1 spray in each nostril Nasally Once a day for 30 days Not-Taking Fluticasone Propionate 50 MCG/ACT Nasal for 30 USE 1 SPRAY EACH NOSTRIL EVERY DAY 08/09/2015 Not-Taking Montelukast Sodium 10 MG TAKE 1 TABLET BY MOUTH EVERY EVENING for 90 Not-Taking Vitamin D3 2000 UNIT Oral Daily for 90 TAKE 1 TA BLET DAILY 05/12/2015 Not-Taking Immunizations Vaccine Route Administration Date Status Comme nts Influenza (split), 3 yrs and above IM Intramuscular 05/27/2017 Administered [facility] Tdap IM Intramuscular 09/04/2022 Administered Social History Tobacco Use: Social History Observation Description Date Details (start date - stop date) Current Smoker NA - NA Tobacco Use/Smoking Question Answer Notes Are you a current every day smoker Additional Findings: Tobacco User Light cigarett e smoker ((1-9 cigs/day) Alcohol Screen (Audit-C) Question Answer Notes Did you have a drink containing alcohol in the p ast year? No Points 0 Interpretation Negative Tobacco use other than smoking: Question Answer Notes Are you an other tobacco user? Yes Section Notes: . 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 Goes to bed at 2 am and wakes up at 10 am. Smokes 1/ ppd Drinks sparingly beer. No exercise. . 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 Goes to bed at 2 am and wakes up at 10 am. Smokes 1/ ppd Drinks sparingly beer. No exercise. . 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 Goes to bed at 2 am and wakes up at 10 am. Smokes 1/ ppd Drinks sparingly beer. No exercise. . 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 Goes to bed at 2 am and wakes up at 10 am. Smokes 1/ ppd Drinks sparingly beer. No exercise. . 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 Goes to bed at 2 am and wakes up at 10 am. Smokes 1/ ppd Drinks sparingly beer. No exercise. . 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 Goes to bed at 2 am and wakes up at 10 am. Smokes 1/ ppd Drinks sparingly beer. No exercise. . 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 Goes to bed at 2 am and wakes up at 10 am. Smokes 1/ ppd Drinks sparingly beer. No exercise. . 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 Goes to bed at 2 am and wakes up at 10 am. Smokes 1/ ppd Drinks sparingly beer. No exercise. . 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 Goes to bed at 2 am and wakes up at 10 am. Smokes 1/ ppd Drinks sparingly beer. No exercise. . 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 Goes to bed at 2 am and wakes up at 10 am. Smokes 1/ ppd Drinks sparingly beer. No exercise. . 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 Goes to bed at 2 am and wakes up at 10 am. Smokes 1/ ppd Drinks sparingly beer. No exercise. . 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 Goes to bed at 2 am and wakes up at 10 am. Smokes 1/ ppd Drinks sparingly beer. No exercise. . 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 Goes to bed at 2 am and wakes up at 10 am. Smokes 1/ ppd Drinks sparingly beer. No exercise. . 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 Goes to bed at 2 am and wakes up at 10 am. Smokes 1/ ppd Drinks sparingly beer. No exercise. . 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 Goes to bed at 2 am and wakes up at 10 am. Smokes 1/ ppd Drinks sparingly beer. No exercise. . 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 Goes to bed at 2 am and wakes up at 10 am. Smokes 1/ ppd Drinks sparingly beer. No exercise. . 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 Goes to bed at 2 am and wakes up at 10 am. Smokes 1/ ppd Drinks sparingly beer. No exercise. . 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 Goes to bed at 2 am and wakes up at 10 am. Smokes 1/ ppd Drinks sparingly beer. No exercise. . 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 Goes to bed at 2 am and wakes up at 10 am. Smokes 1/ ppd Drinks sparingly beer. No exercise. . 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 Goes to bed at 2 am and wakes up at 10 am. Smokes 1/ ppd Drinks sparingly beer. No exercise. . 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 Goes to bed at 2 am and wakes up at 10 am. Smokes 1/ ppd Drinks sparingly beer. No exercise. . 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 Goes to bed at 2 am and wakes up at 10 am. Smokes 1/ ppd Drinks sparingly beer. No exercise. . 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 Goes to bed at 2 am and wakes up at 10 am. Smokes 1/ ppd Drinks sparingly beer. No exercise. . 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 Goes to bed at 2 am and wakes up at 10 am. Smokes 1/ ppd Drinks sparingly beer. No exercise. . 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 Goes to bed at 2 am and wakes up at 10 am. Smokes 1/ ppd Drinks sparingly beer. No exercise. Problems Problem Type SNOMED Code ICD Code Onset Dates Problem Status W/U Status Risk Notes Problem 99968882358076487 Flat foot [pes planus] (acquired), right foot (M21.41) Active confirmed Will refr to collar shaper operator Problem Glycosuria (54278800) Glycosuria (R81) Active confirmed Problem Smoker (76850124) Smoker (F17.200) Active confirmed Problem 882380310 Back pain (M54.9) Active confirmed Problem Temporomandibular joint disorder (08164923) TMJ (temporomandibu lar joint disorder) (M26.60) Active confirmed 10/01/22 Reassured Will give Meloxicam for 14 days and amuscle relaxant at night Will refer to orofacial surgeon if needed Problem Atherosclerotic heart disease of [place] coronary artery without angina pectoris (155860187551404) Coronary artery arteriosclerosi s (I25.10) Active confirmed 04/30/23 Had Coronary artery cath through right radial artery. Non obstructing CAD Done [place] [facility] [place] 04/19/23 Problem 872191178 Back pain at L4-L5 level (M54.5) Active confirmed Will give cyclobenzaprine and diclofenac for 2 weeks Problem 757608273 Onychomycosis (B35.1) Active confirmed Will refer to language assistant Problem 22196239 Nicotine addiction (F17.200) Active confirmed 15 minutes counselling Started on Chantix. Tried for 2 weeks Had insomnia so stopped Wants to try Nicorette Gum 4 mg. Will try wellbutrin 04/30/23 Given Nicotine Patch. Doesnt like it Will give Nicotine gum 02/08/19 Wellbutrin didnt work Will try nicotine gum. Has 30 pack year of smoking Will order low dose CT scan of lung Problem 24871805 Diastolic hypertension (I10) Active confirmed bp at goal in office. advised not to double up on bp med without checking with office first. Take bp in morning not in middle of work day. continue to limit caffeine discussed FRANCISCO diet. 04/30/23 Had echo done in hospital 70 %EF Problem Dyslipidemia (340841176) Dyslipidemia (E78.5) Active confirmed 10/01/22 Will recheck lipids Problem Allergic rhinitis caused by pollen (09604151) Seasonal allergic rhinitis due to pollen (J30.1) Active confirmed 02/12/22 I think his symptoms of mild imbalance is allergy related as it happens when he is walking outside with his The pollen count is very high this summer He has sneezing and watering of eyes 04/30/23 Gets rash intermittent. Will refer to catering staff member for patch test Problem Hyperglycemia (03695786) Hyperglycemia (R73.9) Active confirmed Father is diabetic 65 yr Diabetic for 10 yrs/ Ill check his labs again and see him earlier if he is diabetic Problem Hyperglycemia (01415656) Hyperglycemia (R73.9) Active confirmed Father is diabetic 65 yr Diabetic for 10 yrs/ Ill check his labs again and see him earlier if he is diabetic Problem Requires vaccination (885706750) Need for diphtheria-teta nus-pertussis (Tdap) vaccine (Z23) Active confirmed Problem Post-discharge follow-up (858803416) Hospital discharge follow-up (Z09) Active confirmed Problem General examination of patient (611493303) Routine medical exam (Z00.00) Active confirmed Problem 678274670 Raynauds disease without gangrene (I73.00) Active confirmed Problem Disorder of refraction AND/OR accommodation (66806213) 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 Cancelled appt with Ortho Advised to get rubber mats at work and see a collar shaper operator to determine if he needs arch support Problem 883183531 Dyslipidemia (high LDL; low HDL) (E78.5) Active confirmed Will check lipi d 04/30/23 Started on atorvastatin at [facility] Problem 65465025 Chronic eczematous otitis externa of both ears (H60.8X3) Active confirmed Will give prednisone cream Problem Disorder of skin pigmentation (14986642) Change in pigmented skin lesion of face (L81.9) Active confirmed Has a pigmented spot on the right sight of his mouth at the angle Growing bigger Will refer to language assistant Plan Of Treatment Pending Test Test Name Order Date Urinalysis, Complete 12/22/2018 Urinalysis, Complete 04/07/2020 Urinalysis, Complete 09/04/2022 Lipid Panel 09/04/2022 Lipid Panel 10/01/2022 Lipid Panel 04/07/2020 Chem-Comprehensive 09/04/2022 CBC WITH AUTO DIFF 04/07/2020 COMPREHENSIVE METABOLIC PANEL 04/07/[address] lung 04/30/2023 Future Test Test Name Order Date Urinalysis, Complete 11/20/2019 CBC WITH AUTO DIFF 11/20/2019 COMPREHENSIVE METABOLIC PANEL 11/20/2019 Insurance Providers Payer Name Payer Address Payer Phone Subscriber Number Group Number Insured Name Patient Relationship to Insured Coverage Start Date Coverage End Date [facility] Plan, [place] [address] [address] [place] [phone] [id number] Vida Garcia Self - patient is the insured Medical (General) History Medical History History ICD Code Smoker Unable and unwilling to quit Did ntry on my urging LBP Betetr now Chronic fungal dermatitis of feet Hx of gastritis Surgical History Surgery Date(Month/Year)
--- OUTSIDE RECORDS SUMMARY | 2024-10-12 20:49 | XMS_ITS ---
Author Organization [facility] Address [address] [place] [address] Care Team Providers Care Executive Vice President And Chief Financial Officer Name Role Phone YVONNE PARKER Primary Care Provider REASON FOR VISIT Transferred to [facility] Encounter Location Date Provider Diagnosis [facility] [address] [place] [address] 08/06/2023 YVONNE PARKER Plan Of Treatment No Information Progress Notes * Vida LANTIGUADOB:1980 ( 42 yo M)Acc No.[id number]:08/06/2023 Patient:?Jose Vida :1980???Age:42 Y???Sex:Male Address:[address], [place], [address] * true * Date:? Generated for Marquesi emiliano/Matthew/eTransmitting on:?10/12/2024 08:49 PM EST
--- OUTSIDE RECORDS SUMMARY | 2024-10-12 20:49 | XMS_ITS ---
Author Organization [facility] Address [address] [place] [address] Care Team Providers Care Risk Control Manager Name Role Phone YVONNE PARKER Primary Care Provider REASON FOR VISIT Transferring Out Encounters Encounter Location Date Provider Diagnosis [facility] [address] [place] [address] 07/30/2023 YVONNE PARKER Plan Of Treatment No Information Progress Notes * Vida LANTIGUADOB:1980 ( 42 yo M)Acc No.[id number]:07/30/2023 Patient:?Jose Vida :1980???Age:42 Y???Sex:Male Address:[address] [place], [address] * true * Date:? Generated for Marquesi emiliano/Matthew/eTransmitting on:?10/12/2024 08:48 PM EST
== END ==
LOC: HO.SL 20:30
PROVIDERS: PCP Internal Medicine; Visit Provider Nurse Practitioner Family
DX: R06.83 Snoring (principal); G47.62 Sleep related leg cramps; R06.81 Apnea, not elsewhere classified; I42.8 Other cardiomyopathies
CPT/HCPCS: 95810

== ENCOUNTER → 2024-10-12 21:00 | Outpatient (BNV) | payer OTHER, SELFPAY | PROVIDERS: PCP Internal Medicine; Visit Provider Psychiatry & Neurology Neurology | DX: G47.33 Obstructive sleep apnea (adult) (pediatric) (principal) | CPT/HCPCS: 95810 ==

== ENCOUNTER 2024-11-23 09:13 | Outpatient (AMB) | payer OTHER, SELFPAY ==
[2024-11-23 09:17] VITALS: BP 120/86; PULSE 62; O2SAT 98; BMI 26.3
--- NOTE | 2024-11-23 09:17 | A.OFFPC_ITS ---
Vital Signs 11/23/24 09:17 Height 5 ft 6 in Weight 163 lb BMI 26.3 BP 120/86 Blood Pressure Location Lt brachial Position Sitting Pulse 62 Pulse Source Pulse Oximeter Pulse Oximetry (%) 98 Oxygen Delivery Method Room Air Intake Visit Reasons: HTN, hyperlipidemia, cardiomyopathy Regulatory Scientist Required: No Accompanied by: Self / Same As Patient Allergies No Known Allergies Allergy (Verified 11/23/24 10:37) Medication List - Last Reconciled 11/23/24 by Andi Sigala MD amlodipine 10 mg PO DAILY 90 days atorvastatin 20 mg PO DAILY 90 days cholecalciferol (vitamin D3) 50 mcg PO DAILY 90 days clotrimazole-betamethasone 1-0.05 % 1 appl topical BID 2 weeks loratadine 10 mg PO DAILY PRN 90 days magnesium oxide 400 mg PO BEDTIME 30 days Tobacco use date assessed: 11/23/24 Dental Screening Dental Screen Date: 11/23/24 Did you have a dental visit in the last 12 months?: Yes Did you have a dental problem in the last 6 months where you did not have access to dental care?: No Was dental information given to patient?: Patient has dentist HPI HTN, hyperlipidemia, cardiomyopathy HPI Details Patient comes in today for his follow up visit for his HTN, hyperlipidemia and non-ischemic cardiomyopathy States that he feels okay He denies any headaches or dizziness Denies any chest pains, no increased SOB No nausea/vomiting, no abdominal pain No change in bowel habits noted Needs his Atorvastatin Rx refilled He is currently following up with Sleep Medicine for work up for possible ESTEBAN but it looks like based on his recent sleep study results, he has PLMD instead He was not able to get his follow up labs done prior to his appointment today - states that he had some labs done immediately following his last visit and was not aware that he needs to have labs done again prior to his appointment today Adds that he has noticed some increasing hypopigmented spots/lesions on his right arm for the past couple of months - states that these lesions do not itch or hurt He recalls that his father also had similar lesions on his arms years ago and is wondering if this is something hereditary [facility] Medical History (Updated 11/23/24 @ 10:48 by Andi Sigala MD) Periodic limb movement disorder (PLMD) Vitamin D deficiency Allergic rhinitis Overweight (BMI 25.0-29.9) Hx of coronary angiogram Nonobstructive cardiomyopathy Essential hypertension Surgical History No pertinent past surgical history Family History Other Family history non-contributory Social History Housing: House Patient Tobacco Use Status: Former Tobacco user e-Cigarette/Vaping Use: Never Used Second Hand Smoke Exposure: No service: No Current occupational status: unemployed Cognitive needs: No Hearing needs: No Vision needs: No Questionnaire PHQ-9 Over the last 2 weeks, how often have you been bothered by any of the following problems? 1. Little interest or pleasure in doing things: not at all 2. Feeling down, depressed, or hopeless: several days 3. Trouble falling or staying asleep, or sleeping too much: not at all 4. Feeling tired or having little energy: not at all 5. Poor appetite or overeating: not at all 6. Feeling bad about yourself - or that you are a failure or have let yourself or your family down: not at all 7. Trouble concentrating on things, such as reading the newspaper or watching television: not at all 8. Moving or speaking so slowly that other people could have noticed. Or the opposite - being so fidgety or restless that you have been moving around a lot more than usual: not at all 9. Thoughts that you would be better off or of hurting yourself in some way: not at all Total score: 1 Depression Screening Interpretation: Negative Depression Screening Done: Yes 32870 - PHQ-9 Billing: Yes Source: Developed by Drs. Paul Jin, Taty Turpin, Rob Oseguera and colleagues, with an educational neil from [employer]. Thrive Questionnaire Date Thrive assessed: 11/23/24 I am a: Patient What is your living situation today?: I have a steady place to live Within the past 12 months, did the food you bought not last and you didn't have the money to get more?: Never true Within the past 12 months, did you worry whether your food would run out before you got money to buy more?: Never true Do you have trouble paying for medicines?: No Do you have trouble getting transportation to medical appointments?: No Do you have trouble paying your heating and electricity bill?: No Do you have trouble taking care of your child, family member or friend?: No Do you have trouble with day-to-day activities such as bathing, preparing meals, shopping, managing finances, etc.?: No Are you currently unemployed and looking for a job?: No Are you interested in more education?: No Please select the resources that you would like help with: None Currently or been in a relationship where the following occur: No concerns reported THRIVE Score: 0 AUDIT C Alcohol Use Questionnaire (AUDIT-C) 1. How often do you have a drink containing alcohol?: Never 3. How often do you have six or more drinks on one occasion?: Never Total Score: 0 Score Reviewed/Action Taken: Yes KAROLINE-7 AMB Questionnaire KAROLINE-7 Date KAROLINE - 7 assessed: 11/23/24 Feeling nervous, anxious, or on edge: 0 = Not at all Not being able to stop or control worryin = Several days Worrying too much about different things: 0 = Not at all Trouble relaxin = Not at all Being so restless that it is hard to sit still: 0 = Not at all Becoming easily annoyed or irritable: 0 = Not at all Feeling afraid as if something awful might happen: 0 = Not at all Total KAROLINE-7 score (0-4 normal; 5-9 mild; 10-14 moderate; 15-21 severe): 1 Source: Developed by Drs. Paul Jin, Taty Turpin, Rob Oseguera and colleagues, with an educational neil from [employer]. KAROILNE-7 Assessment Billing KAROLINE-7 Assessment Tool: KAROLINE-7 Assessment 23010 Review of Systems Const Denies chills, Denies fatigue, Denies fever(s) and Denies headache(s) ENT Denies dysphagia, Denies dizziness, Denies otalgia, Denies headache(s), Denies neck pain, Denies odynophagia and Denies sore throat Card Denies chest pain, Denies palpitations and Denies dyspnea Resp Denies chest congestion, Denies cough and Denies dyspnea GI Denies abdominal pain, Denies constipation, Denies dysphagia, Denies heartburn, Denies diarrhea, Denies nausea, Denies odynophagia and Denies vomiting Denies hematuria, Denies dysuria, Denies nocturia and Denies urinary frequency Musc Denies back pain, Reports muscle cramps (recurrent lately, especially at night) and Denies neck pain Skin/Breast Reports as per HPI and Reports rash (scattered hypopigmented lesions on the right arm) Neuro Denies dizziness and Denies headache(s) Endo Denies fatigue and Denies palpitations Physical exam (Primary Care) Vital Signs: Last Vital Signs Pulse 62 11/23/24 09:17 BP 120/86 11/23/24 09:17 Pulse Ox 98 11/23/24 09:17 Oxygen Delivery Method Room Air 11/23/24 09:17 BMI result Body Mass Index 26.3 Tobacco/Smoking Status: Tobacco use Status Tobacco use date assessed 11/23/24 11/23/24 09:25 Patient Tobacco Use Status Former Tobacco user 11/23/24 09:25 e-Cigarette/Vaping Use Never Used 11/23/24 09:25 PHQ-9: PHQ-9 Score PHQ-9: Total score 1 11/23/24 09:25 Depression Screening Interpretation: Negative Thrive Assessment: Date of Thrive Assessment Date Thrive assessed 11/23/24 11/23/24 09:25 Currently or been in a relationship where the following occur: No concerns reported Const General: no acute distress and alert HENMT Ears: TM's normal bilaterally and EAC's normal Throat: Yes posterior oropharynx normal and Yes tonsils normal (no TP congestion) Neck Neck: Yes supple and No lymphadenopathy Thyroid: Thyroid normal Resp Auscultation: clear to auscultation bilaterally, no rales and no wheezes Cardio Rate: regular rate Rhythm: regular rhythm Heart sounds: no murmurs GI Palpation (GI): Soft to palpation and nontender Auscultation: normal bowel sounds General: Yes no CVA tenderness Back/Spine/Pelvis Back: no CVA tenderness Thoracic/Lumbar Spine: No lumbar spinal tenderness Skin Other: (+) scattered multiple hypopigmented lesions on the right upper extremity Extrem General: Yes no clubbing, cyanosis or edema Results Reviewed Results Reviewed: Laboratory Tests 05/11/24 10:00 Sodium 142 Potassium 3.8 Creatinine 0.77 Estimated GFR > 60 Fasting Glucose 101 H Total Bilirubin 1.3 H AST 18 ALT 33 Triglycerides 84 Cholesterol 131 LDL Cholesterol, Calc 67 HDL Cholesterol 48 Ur Specific [place] 1.015 Urine Protein Negative Urine Glucose (UA) Negative Urine Blood Negative Urine Nitrite Negative Ur Leukocyte Esterase Negative Coding Level of Care Code Est Pt Level 4 (75971) Complex EM visit Add On G2211 Diagnoses Nonobstructive cardiomyopathy I42.8 Essential hypertension I10 Non-seasonal allergic rhinitis, unspecified trigger J30.89 Allergic rhinitis trigger: unspecified Allergic rhinitis seasonality: non-seasonal Vitamin D deficiency E55.9 Periodic limb movement disorder (PLMD) G47.61 Calculus of upper urinary tract N20.9 Urinary calculus location: upper urinary tract Vitiligo L80 Overweight (BMI 25.0-29.9) E66.3 Additional Codes KAROLINE-7 Assessment Billing - KAROLINE-7 Assessment Tool: KAROLINE-7 Assessment 43736 ([id number]) PHQ-9 - 06784 - PHQ-9 Billing: Yes ([id number]) Assessment & Plan Assessment & Plan (1) Nonobstructive cardiomyopathy: Code(s): I42.8 - Other cardiomyopathies Category: Medical Plan: Coronary angiography done on 04/19/2023 revealed mild coronary disease with no significant obstruction Continue aggressive secondary risk factor modification, including blood pressure and cholesterol He has since quit smoking and states that he continues to work on his diet and tries to stay active when he can and when time allows as 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 [employer] States that he was given the okay by cardiology at his last appointment with them to STOP taking his low dose Aspirin and he is now OFF Aspirin Rx Results of his labs done back in May 2024 reviewed and discussed with patient - he is advised that his cholesterol levels were at goal, with his LDL cholesterol at 67 mg/dl back then He was not able to get his labs rechecked prior to his appointment today Reinforced low cholesterol/cardiac diet Continue Atorvastatin 20 mg QD - Rx refilled Will also have him recheck his labs and fasting lipids in 6 months for follow up Follow up with [facility]iology as scheduled (2) Essential hypertension: Code(s): I10 - Essential (primary) hypertension Category: Medical Plan: Reinforced low sodium diet - goal is systolic BP of 120 mm or less Continue Amlodipine 10 mg QD Patient is reminded to continue monitoring his blood pressure regularly (3) Allergic rhinitis: Code(s): J30.9 - Allergic rhinitis, unspecified Category: Medical Qualifiers: Allergic rhinitis trigger: unspecified Allergic rhinitis seasonality: non-seasonal Qualified Code(s): J30.89 - Other allergic rhinitis Plan: Continue Loratadine 10 mg QD PRN (4) Vitamin D deficiency: Code(s): E55.9 - Vitamin D deficiency, unspecified Category: Medical Plan: He is again advised that his Vitamin D level was low on his labs done back in May 2024 Will start him back on Vitamin D3 2000 units QD (5) Periodic limb movement disorder (PLMD): Code(s): G47.61 - Periodic limb movement disorder Category: Medical Plan: His initial home sleep study done back in August 2024 was inconclusive so he was sent for an in-lab sleep study, which he had last month His in-lab sleep study done in October 2024 revealed findings of mild ESTEBAN AND PLMs Follow up with Sleep Medicine as scheduled (6) Calculus of urinary tract: Code(s): N20.9 - Urinary calculus, unspecified Category: Medical Qualifiers: Urinary calculus location: upper urinary tract Qualified Code(s): N20.9 - Urinary calculus, unspecified Plan: This was discovered on work ups done at the ER at [facility] when he presented there in April 2024 with sudden onset of right flank pain Patient states that his symptoms have completely subsided and have not recurred since He is advised to continue to increase his oral fluid intake, which may help minimize recurrence of kidney stones (7) Vitiligo: Code(s): L80 - Vitiligo Category: Medical Plan: He was tried on Lotrisone cream BID in the past for suspected tinea versicolor, with little improvement Will refer him now to dermatology for further evaluation and management (8) Overweight (BMI 25.0-29.9): Code(s): E66.3 - Overweight Category: Medical Plan: Reinforced diet/exercise as tolerated/lose weight Plan Follow up in 6 months Orders: Orders Complete Blood Count Auto Diff 6 Months D64.9 - Anemia, unspecified Lipid Panel 6 Months E78.00 - Pure hypercholesterolemia, unspecified Comprehensive [place]. Panel Fast 6 Months E78.00 - Pure hypercholesterolemia, unspecified UA CC w/rflx Micro + Cult 6 Months R30.0 - Dysuria Vitamin D 25-OH Total 6 Months E55.9 - Vitamin D deficiency, unspecified TSH reflex Free T4 6 Months E78.00 - Pure hypercholesterolemia, unspecified Referrals Dermatology Referral L80 - Vitiligo Medications: New cholecalciferol (vitamin D3) 50 mcg PO DAILY 90 days 90 caps 3RF E55.9 - Vitamin D deficiency, unspecified Refilled atorvastatin 20 mg PO DAILY 90 days 90 tabs 1RF
== END 2024-11-23 10:13 | disposition home or self-care (01) ==
LOC: HO.HMCH 09:14
PROVIDERS: PCP Internal Medicine; Visit Provider Internal Medicine
DX: I42.8 Other cardiomyopathies (principal); I10 Essential (primary) hypertension; J30.89 Other allergic rhinitis; E55.9 Vitamin D deficiency, unspecified; G47.61 Periodic limb movement disorder; N20.9 Urinary calculus, unspecified; L80 Vitiligo; E66.3 Overweight

== ENCOUNTER → 2024-11-23 09:13 | Outpatient (BNVA) | payer OTHER, SELFPAY | PROVIDERS: PCP Internal Medicine; Visit Provider Internal Medicine | DX: I42.8 Other cardiomyopathies (principal); I10 Essential (primary) hypertension; J30.89 Other allergic rhinitis; E55.9 Vitamin D deficiency, unspecified; G47.61 Periodic limb movement disorder; L80 Vitiligo; E66.3 Overweight | CPT/HCPCS: 96127; 99212 ==

== ENCOUNTER 2025-01-15 08:51 | Outpatient (AMB) | payer OTHER, SELFPAY ==
--- NOTE | 2025-01-15 08:58 | A.OFFVIS_ITS ---
Vital Signs 01/15/25 08:59 Height 5 ft 6 in Weight 162 lb BMI 26.1 BP 140/80 H Blood Pressure Location Lt brachial Position Sitting Pulse 78 Pulse Source Pulse Oximeter Pulse Oximetry (%) 97 Oxygen Delivery Method Room Air Intake Visit Reasons: Follow UP 6mo Intake Note: Patient presents 6 month follow up for ESTEBAN, compliance Accompanied by: Self / Same As Patient Allergies No Known Allergies Allergy (Verified 01/15/25 09:00) HPI Comments Details: 43-yr-old male presents for new in-person patient visit for sleep consultation. Pt is accompanied by his , July, who pt requests translates Mandarin for him. 08/18/2024, HST showed AHI 4 per hour and O2 alena 88% Follow-up 10/12/2024 in-lab PSG showed mild obstructive sleep apnea with AHI 6.7 per hour, REM AHI 22 per hour, O2 alena 83%, average SpO2 93%, and SpO2 under 88% for 1.3 minutes of study time. Periodic limb movement of sleep 28.7 per hour and PLMS arousal index 3.3 per hour. Since, patient has started on APAP 5-20 cm with EPR set to 2. Initially he is having difficulty with the PAP pressure and leakage, however they requested a CPAP mask change, and this has helped those symptoms. He is now able to use the CPAP longer, however he feels that he is not able to maintain his sleep as long with the CPAP machine as he is without it. Specifically, he feels access moisture in the mask which is interfering with the sleep. They did try to decrease the PAP humidification level, however this led to dry mouth. Patient is cleaning his CPAP supplies regularly. He has not had the machine long enough to need to change supplies yet. He is using bottled water, but not distilled water in his PAP water reservoir. During the visit today, we reviewed the sleep study results in detail, which shows that patient is much more likely to have sleep apnea when sleeping in supine or left lateral position, rather than an right. In regards to the finding of frequent periodic limb movement of sleep, patient's does note that patient does twitching move during sleep, but this does not bother the patient. We have requested lab studies to further evaluate the periodic limb movement sleep, patient has not had them done quite yet. In regards to his tendency for bruxism, he did try an OTC mouth guard but that was not helpful. He had a follow-up with his dentist, who suggested he have his wisdom teeth extracted before having a mouth guard made. He is waiting for an appointment with the oral surgeon. Initial 22 day PAP compliance report: [facility] 12/24/2024-01/14/2025 Overall usage 100% Usage greater than 4 hours 59% Average usage on days used 4 hours and 23 minutes AirSense 11 AutoSet Serial number [id number] APAP 5-20 cm H2O with EPR set to 2 Maximum PAP pressure 16 cm H2O Median leaks 1 L/min Residual AHI 1.5 events per hour 07/06/2024, initial sleep consultation HPI: Patient's reports she has noticed pt snoring, having apneas, however she recently learned that snoring can be associated w/ sleep apnea so they would like to address this now. also reports last Apr 2023, pt was dx'd w/ mild WA after presenting to [facility] ER for chest pain. Review of [facility] records shows discharge dx of Chest pain, Nonobstructive?CAD?per cath on 04/19, HTN, Nicotine abuse, with work-up of ?cardiac cath, nonobstructive atherosclerotic disease, EKG with possible LVH, biphasic T waves in anterior leads, Chest XR- nonacute, Troponin negative x4, NT proBNP normal, TSH normal. He was started on ASA, atorvastatin, prn NTG, and continused on Amlodipine. Pt has since stopped smoking. He has just recently established care w/ a fitting supervisor at [facility], who has advised cardiac MRI/echocradiogram. notes that they had some difficulty w/ f/u care d/t insurance/PCP changes. Sleep history questionnaire: Have you ever been diagnosed with a sleep disorder? No Have you ever had a sleep study in the past? No Have you ever been treated for a sleep disorder? No Do you take medications/supplements for a sleep disorder? No Current sleep symptom questionnaire: Pt reports snoring, nocturnal gasping, apneas, witnessed apneas. Pt reports some daytime tiredness, may need to take naps, but he is constantly active d/t his work/life- thus rarely dozes off unintentionally. states pt does not sit long enough to doze off. Pt reports nocturnal dry mouth, morning dry mouth. 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 Usual bedtime is at 12am Usual time to fall asleep 12:30am Usual wake-up time 7:30-8am Usual out of bed time is at 7:30am-8am Naps: Takes scheduled naps Sleep environment: comfortable, cool, dark, quiet, Electronic use in bedroom: Phone Exercise: no regular exercise. However active during his work day. Caffeine or other stimulants: 1 cups of coffee per day in am only. [facility] Medical History (Updated 01/15/25 @ 14:31 by NISHI Diaz) Periodic limb movement disorder (PLMD) Vitamin D deficiency Allergic rhinitis Overweight (BMI 25.0-29.9) Hx of coronary angiogram Nonobstructive cardiomyopathy Essential hypertension Surgical History No pertinent past surgical history Family History Other Family history non-contributory Social History Housing: House Patient Tobacco Use Status: Former Tobacco user e-Cigarette/Vaping Use: Never Used Second Hand Smoke Exposure: No service: No Current occupational status: unemployed Cognitive needs: No Hearing needs: No Vision needs: No Physical Exam Vital Signs: Last Vital Signs Pulse 78 01/15/25 08:59 BP 140/80 H 01/15/25 08:59 Pulse Ox 97 01/15/25 08:59 Oxygen Delivery Method Room Air 01/15/25 08:59 BMI result Body Mass Index 26.1 Const General: no acute distress Orientation/consciousness: patient oriented x3 Resp Effort & Inspection: normal respiratory effort and able to speak in complete sentences Auscultation: clear to auscultation bilaterally Neuro General: patient oriented x3 Psych Mental Status: mental status grossly normal Speech and movement: Clear speech present Attitude: cooperative Assessment & Plan Assessment & Plan (1) Mild obstructive sleep apnea: Code(s): G47.33 - Obstructive sleep apnea (adult) (pediatric) Category: Medical (2) Snoring: Code(s): R06.83 - Snoring Category: Medical (3) Nocturnal leg cramps: Code(s): G47.62 - Sleep related leg cramps Category: Medical (4) Periodic limb movement disorder (PLMD): Code(s): G47.61 - Periodic limb movement disorder Category: Medical Plan Reviewed home sleep study results and in-lab sleep study results, ultimately showing mild obstructive sleep apnea, with worse severity in REM sleep and frequent periodic limb movements of sleep though few which are associated with arousals. Patient is open to trying new strategies to improve his tolerance to PAP therapy. * We will adjust APAP pressures from APAP 5-15 cm H2O with EPR 2 to APAP cmH2O w/ EPR 3- in hopes this improves PAP tolerance * Use APAP nightly > 4 hours, as pt has already had good reduction in residual AHI with use. * May trial OTC XyliMelts tabs to help with oral dryness * May also try to use a non heated tubing with this PAP machine to reduce excess moisture accumulation * Try sleeping with head elevated and predominantly on the right side- information shared on sleep apnea wedge pillows. * Clean CPAP machine and supplies routinely. * Change CPAP supplies routinely. * Advised to use distilled not simply bottled water in CPAP water reservoir. * Pt to contact us or respiratory company with any questions or concerns. * Written information shared with patient For leg cramps and periodic limb movements of sleep: * Check labs as ordered * Magnesium 400mh qhs- may help leg cramps and bruxism as well. For bruxism: * Continue to follow-up with dentist and have oral surgery consult- to be evaluated in fitted for a mouth guard to prevent bruxism. Will follow-up upon review of above and patient to follow-up in clinic in 6 months or sooner prn. Coding Level of Care Code Est Pt Level 4 (29634) Diagnoses Mild obstructive sleep apnea G47.33 Snoring R06.83 Nocturnal leg cramps G47.62 Periodic limb movement disorder (PLMD) G47.61
[2025-01-15 08:59] VITALS: BP 140/80; PULSE 78; O2SAT 97; BMI 26.1
--- OUTSIDE RECORDS SUMMARY | 2025-01-15 09:03 | XMS_ITS | Clinical Summary ---
Author Organization [facility] Address [address] [place] [address] Care Team Providers Care Senior Statistical Programmer Name Role Phone Unavailable Primary Care Provider [...] Vaccine (2023-2 5 season) 2024 Influenza Vaccine (Season Ended) 2025 HIB Vaccines Aged Out No longer eligi [...] patient's age to complete this topic Meningococcal B Vaccine Aged Out No l onger eligible based on patient's age to complete [...]
== END 2025-01-15 09:51 | disposition home or self-care (01) ==
LOC: HO.HSMS 08:52
PROVIDERS: PCP Internal Medicine; Visit Provider Nurse Practitioner Family
DX: G47.33 Obstructive sleep apnea (adult) (pediatric) (principal); R06.83 Snoring; G47.62 Sleep related leg cramps; G47.61 Periodic limb movement disorder
CPT/HCPCS: 99214

== ENCOUNTER → 2025-01-15 08:51 | Outpatient (BNVA) | payer OTHER, SELFPAY | PROVIDERS: PCP Internal Medicine; Visit Provider Nurse Practitioner Family | DX: G47.33 Obstructive sleep apnea (adult) (pediatric) (principal); G47.62 Sleep related leg cramps; G47.61 Periodic limb movement disorder; R06.83 Snoring | CPT/HCPCS: 99212 ==

== ENCOUNTER 2025-05-24 10:04 | Outpatient (REF) | payer OTHER, SELFPAY ==
[2025-05-24 10:22] LABS: MANUAL DIFF FLAG NO
[2025-05-24 10:38] LABS: Hematocrit 46.9 % (42.0-52.0); Hemoglobin 16.2 g/dl (14.0-18.0); Imm Gran Abs Auto 0.03 X10*3/uL (0.00-0.03); Imm Gran Pct Auto 0.4 % (0.0-0.4); Lymphocytes Absolute Auto 1.7 X10*3/uL (1.2-4.9); Mean Corpuscular HGB Conc 34.5 g/dl (31.0-36.0); Mean Corpuscular Hemoglobin 30.2 pg (27.0-33.0); Mean Corpuscular Volume 87.5 fL (80.0-98.0); NRBC Abs Auto 0.000 X10*3/uL (0.0-0.012); NRBC Pct Auto 0.0 /100WBC (0.0-0.2); Platelet Count 237 X10*3/uL (160-400); Red Blood Count 5.36 X10*6/uL (4.60-5.80); White Blood Count 6.7 X10*3/uL (4.8-10.8)
[2025-05-24 10:57] LABS: Appearance Urine Clear; Glucose Urine UA Negative (Negative); PH 6.0 (5.0-9.0); Specific Gravity - Urine 1.015 (1.005-1.025)
[2025-05-24 11:32] LABS: Anion Gap 11 (12-20); Blood Urea Nitrogen 15 mg/dL (9-16); Carbon Dioxide 29 mmol/L (22-29); Chloride 105 mmol/L (96-108); Ferritin 327 ng/mL (20-250); Potassium 3.9 mmol/L (3.3-5.1); Sodium 141 mmol/L (135-145)
[2025-05-24 11:33] LABS: Alanine Aminotransferase 29 U/L (0-40); Albumin Level 4.7 g/dL (3.5-5.0); Alkaline Phosphatase 73 U/L (39-117); Aspartate Amino Transferase 31 U/L (5-37); Calcium 9.2 mg/dL (8.4-10.2); Cholesterol 121 mg/dL (<200); Estimated Glomerular Filt Rate > 60; HDL Cholesterol 48 mg/dL (>40); Iron 71 mcg/dL (45-160); Magnesium 2.2 mg/dL (1.6-2.6); Percent Iron Saturation 29 % (15-50); Total Iron Binding Capacity 247 mcg/dL (228-428); Total Protein 7.4 g/dL (6.5-8.0); Triglycerides 138 mg/dL (<150); Unsaturated Iron Binding 176 ug/dL
[2025-05-24 12:02] LABS: Folate 9.7 ng/mL (> or = 4.0); Vitamin B12 902 pg/mL (200-900)
--- OUTSIDE RECORDS SUMMARY | 2025-05-24 12:22 | XMS_ITS | Clinical Summary ---
Author Organization [facility] Address [address] [place] [address] Care Team Providers Care Director Of Instructional Technology Name Role Phone Unavailable Primary Care Provider [...] series) 2000 Cholesterol Screening (Lipid Panel) 07/31/2022 HIV Screening 07/31/2022 Hepatitis C Screening 07/31/2022 Social Influencers of Health Screening 07/31/2022 Depression Screening 09/02/2024 COVID-19 Vaccine ( - 2023-2 5 season) 2025 Influenza Vaccine (#1) 2025 HIB Vaccines Aged Out No longer [...] 5 Years) and At-Risk Patients (6 to 49 Years) Aged Out No longer eligible b ased on patient's age to complete this topic RSV Immunization Patients Un bryant 20 months Aged Out No longer eligible b ased on patient's age to complete this topic Varicella Vaccines Aged Out No longer eligible based on patient's age to complete this topic
[2025-06-02 12:53] LABS: Vitamin D 25-OH, D2 5 ng/mL; Vitamin D 25-OH, D3 38 ng/mL; Vitamin D 25-OH, Total 43 ng/mL (30-100)
== END 2025-05-24 10:05 | disposition home or self-care (01) ==
LOC: HO.LAB 10:04
PROVIDERS: Nurse Practitioner Family; Visit Provider Internal Medicine
DX: G47.61 Periodic limb movement disorder (principal); I42.8 Other cardiomyopathies; E78.00 Pure hypercholesterolemia, unspecified; E55.9 Vitamin D deficiency, unspecified; G47.62 Sleep related leg cramps; I10 Essential (primary) hypertension; R30.0 Dysuria
CPT/HCPCS: 36415; 80053; 80061; 81003; 82306; 82607; 82728; 82746; 83540; 83735; 84443; 85025

== ENCOUNTER 2025-05-31 09:11 | Outpatient (AMB) | payer OTHER, SELFPAY ==
[2025-05-31 09:21] VITALS: BP 130/78; PULSE 74; O2SAT 97; BMI 25.8
--- NOTE | 2025-05-31 09:21 | MHC.PC.OV ---
Vital Signs 05/31/25 09:21 Height 5 ft 6 in Weight 160 lb 2 oz BMI 25.8 BP 130/78 Blood Pressure Location Lt brachial Position Sitting Pulse 74 Pulse Source Pulse Oximeter Pulse Oximetry (%) 97 Oxygen Delivery Method Room Air Intake Visit Reasons: 6 month f/u Acquisition Lead Required: No Accompanied by: Self / Same As Patient Allergies No Known Allergies Allergy (Verified 05/31/25 09:43) Medication List - Last Reconciled 05/31/25 by Andi Sigala MD amlodipine 10 mg PO DAILY 90 days atorvastatin 20 mg PO DAILY 90 days cholecalciferol (vitamin D3) 50 mcg PO DAILY 90 days clotrimazole-betamethasone 1-0.05 % 1 appl topical BID 2 weeks loratadine 10 mg PO DAILY PRN 90 days magnesium oxide 400 mg PO BEDTIME 90 days Tobacco use date assessed: 05/31/25 Dental Screening Dental Screen Date: 05/31/25 Did you have a dental visit in the last 12 months?: Yes Did you have a dental problem in the last 6 months where you did not have access to dental care?: No Was dental information given to patient?: Patient has dentist HPI 6 month f/u HPI Details Patient comes in today for his follow up visit States that he feels okay and is now using a CPAP device when he is sleeping at night Recalls that it took him some time to get used to having his CPAP on when sleeping at night and states that he still sometimes wake up in the middle of the night due to having the device on his face but thinks that he has been sleeping better overall since he started using his CPAP Relates that he still has occasional muscle cramping in his legs, especially on his right leg but relates that he is on his feet all day while at work as 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 [employer] He denies any headaches or dizziness Denies any chest pains, no SOB No nausea/vomiting, no abdominal pain No change in bowel habits noted He had his follow up labs done last week - tp discuss his results [facility] Medical History Periodic limb movement disorder (PLMD) Vitamin D deficiency Allergic rhinitis Overweight (BMI 25.0-29.9) Hx of coronary angiogram Nonobstructive cardiomyopathy Essential hypertension Surgical History No pertinent past surgical history Family History Other Family history non-contributory Social History Housing: House Patient Tobacco Use Status: Former Tobacco user e-Cigarette/Vaping Use: Never Used Second Hand Smoke Exposure: No service: No Current occupational status: unemployed Cognitive needs: No Hearing needs: No Vision needs: No Questionnaire PHQ-9 Over the last 2 weeks, how often have you been bothered by any of the following problems? 1. Little interest or pleasure in doing things: several days 2. Feeling down, depressed, or hopeless: several days 3. Trouble falling or staying asleep, or sleeping too much: several days 4. Feeling tired or having little energy: several days 5. Poor appetite or overeating: several days 6. Feeling bad about yourself - or that you are a failure or have let yourself or your family down: several days 7. Trouble concentrating on things, such as reading the newspaper or watching television: several days 8. Moving or speaking so slowly that other people could have noticed. Or the opposite - being so fidgety or restless that you have been moving around a lot more than usual: several days 9. Thoughts that you would be better off or of hurting yourself in some way: not at all Total score: 8 Depression Screening Interpretation: Positive Depression Screening Follow-up: Follow-up Visit Requested Depression Screening Done: Yes 26730 - PHQ-9 Billing: Yes Source: Developed by Drs. Paul Jin, Taty Turpin, Rob Oseguera and colleagues, with an educational neil from [employer]. Thrive Questionnaire Date Thrive assessed: 11/23/24 I am a: Patient What is your living situation today?: I have a steady place to live Within the past 12 months, did the food you bought not last and you didn't have the money to get more?: Never true Within the past 12 months, did you worry whether your food would run out before you got money to buy more?: Never true Do you have trouble paying for medicines?: No Do you have trouble getting transportation to medical appointments?: No Do you have trouble paying your heating and electricity bill?: No Do you have trouble taking care of your child, family member or friend?: No Do you have trouble with day-to-day activities such as bathing, preparing meals, shopping, managing finances, etc.?: No Are you currently unemployed and looking for a job?: No Are you interested in more education?: No Please select the resources that you would like help with: None Currently or been in a relationship where the following occur: I choose not to answer THRIVE Score: 0 AUDIT C Alcohol Use Questionnaire (AUDIT-C) 1. How often do you have a drink containing alcohol?: Never 3. How often do you have six or more drinks on one occasion?: Never Total Score: 0 Score Reviewed/Action Taken: Yes KAROLINE-7 AMB Questionnaire KAROLINE-7 Date KAROLINE - 7 assessed: 11/23/24 Feeling nervous, anxious, or on edge: 1 = Several days Not being able to stop or control worryin = Several days Worrying too much about different things: 1 = Several days Trouble relaxin = Several days Being so restless that it is hard to sit still: 1 = Several days Becoming easily annoyed or irritable: 1 = Several days Feeling afraid as if something awful might happen: 1 = Several days Total KAROLINE-7 score (0-4 normal; 5-9 mild; 10-14 moderate; 15-21 severe): 7 Source: Developed by Drs. Paul Jin, Taty Turpin, Rob Oseguera and colleagues, with an educational neil from [employer]. Review of Systems Const Denies chills, Denies difficulty sleeping, Denies fatigue, Denies fever(s) and Denies headache(s) ENT Denies dysphagia, Denies dizziness, Denies otalgia, Denies headache(s), Denies neck pain, Denies odynophagia and Denies sore throat Card Denies chest pain, Denies palpitations and Denies dyspnea Resp Denies chest congestion, Denies cough and Denies dyspnea GI Denies abdominal pain, Denies constipation, Denies dysphagia, Denies heartburn, Denies diarrhea, Denies nausea, Denies odynophagia and Denies vomiting Denies difficulty urinating, Denies dysuria, Denies nocturia and Denies urinary frequency Musc Denies back pain, Reports muscle cramps (occasionally at night, more often over his right lower leg) and Denies neck pain Skin/Breast Denies rash Neuro Denies dizziness and Denies headache(s) Psych Denies anxiety Endo Denies fatigue and Denies palpitations Physical exam (Primary Care) Vital Signs: Last Vital Signs Pulse 74 05/31/25 09:21 BP 130/78 05/31/25 09:21 Pulse Ox 97 05/31/25 09:21 Oxygen Delivery Method Room Air 05/31/25 09:21 BMI result Body Mass Index 25.8 Tobacco/Smoking Status: Tobacco use Status Tobacco use date assessed 05/31/25 05/31/25 09:22 Patient Tobacco Use Status Former Tobacco user 05/31/25 09:22 e-Cigarette/Vaping Use Never Used 05/31/25 09:22 PHQ-9: PHQ-9 Score PHQ-9: Total score 8 05/31/25 09:22 Depression Screening Interpretation: Positive Depression Screening Follow-up: Follow-up Visit Requested Thrive Assessment: Date of Thrive Assessment Date Thrive assessed 11/23/24 05/31/25 09:22 Currently or been in a relationship where the following occur: I choose not to answer Const General: no acute distress and alert HENMT Ears: TM's normal bilaterally and EAC's normal Throat: Yes posterior oropharynx normal and Yes tonsils normal (no TP congestion) Neck Neck: Yes supple and No lymphadenopathy Thyroid: Thyroid normal Resp Auscultation: clear to auscultation bilaterally, no rales and no wheezes Cardio Rate: regular rate Rhythm: regular rhythm Heart sounds: no murmurs GI Palpation (GI): Soft to palpation and nontender Auscultation: normal bowel sounds General: Yes no CVA tenderness Back/Spine/Pelvis Back: no CVA tenderness Thoracic/Lumbar Spine: No lumbar spinal tenderness Skin Rashes: no rashes Extrem General: Yes no clubbing, cyanosis or edema Results Reviewed Results Reviewed: Laboratory Tests 05/24/25 05/24/25 10:15 10:19 WBC 6.7 Hgb 16.2 Hct 46.9 Plt Count 237 Sodium 141 Potassium 3.9 Creatinine 0.71 Estimated GFR > 60 Fasting Glucose 94 Calcium 9.2 Magnesium 2.2 Iron 71 TIBC 247 % Saturation 29 Unsat Iron Binding 176 Ferritin 327 H AST 31 ALT 29 Triglycerides 138 Cholesterol 121 LDL Cholesterol, Calc 46 HDL Cholesterol 48 Vitamin B12 902 H 25-OH Vitamin D Total 38.8 TSH 1.01 Ur Specific [place] 1.015 Urine Protein Negative Urine Glucose (UA) Negative Urine Blood Negative Urine Nitrite Negative Ur Leukocyte Esterase Negative Coding Level of Care Code Est Pt Level 4 (66009) Diagnoses Nonobstructive cardiomyopathy I42.8 Essential hypertension I10 Elevated ferritin level R79.89 Non-seasonal allergic rhinitis, unspecified trigger J30.89 Allergic rhinitis trigger: unspecified Allergic rhinitis seasonality: non-seasonal Vitamin D deficiency E55.9 Nocturnal leg cramps G47.62 Mild obstructive sleep apnea G47.33 Periodic limb movement disorder (PLMD) G47.61 Calculus of upper urinary tract N20.9 Urinary calculus location: upper urinary tract Vitiligo L80 Overweight (BMI 25.0-29.9) E66.3 Additional Codes PHQ-9 - 39134 - PHQ-9 Billing: Yes ([id number]) Assessment & Plan Assessment & Plan (1) Nonobstructive cardiomyopathy: Code(s): I42.8 - Other cardiomyopathies Category: Medical Plan: Coronary angiography done on 04/19/2023 revealed mild coronary disease with no significant obstruction Continue aggressive secondary risk factor modification, including blood pressure and cholesterol He has since quit smoking and states that he continues to work on his diet and tries to stay active when he can and when time allows as 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 [employer] States that he was given the okay by cardiology earlier this year to STOP taking his low dose Aspirin Follow up with [facility] as scheduled Results of his labs done last week reviewed and discussed with patient - he is advised that his cholesterol levels were at goal, with his LDL cholesterol now down to 46 mg/dl Reinforced low cholesterol/cardiac diet Continue Atorvastatin 20 mg QD Will also have him recheck his labs and fasting lipids in 6 months for follow up (2) Essential hypertension: Code(s): I10 - Essential (primary) hypertension Category: Medical Plan: Reinforced low sodium diet - goal is systolic BP of 120 mm or less Continue Amlodipine 10 mg QD Patient is reminded to continue monitoring his blood pressure regularly (3) Elevated ferritin level: Code(s): R79.89 - Other specified abnormal findings of blood chemistry Category: Medical Plan: His serum ferritin level came back elevated Have advised patient that this is a non-specific marker and with normal LFTs, are likely of no clinical significance at this time His serum iron level is at 71, TIBC = 247 - transferrin saturation (TSAT) is calculated to be around 28.75%, which is within normal range so hemochromatosis is unlikely Will recheck this in 6 months, alomg with ESR and CRP, for further evaluation (4) Allergic rhinitis: Code(s): J30.9 - Allergic rhinitis, unspecified Category: Medical Qualifiers: Allergic rhinitis trigger: unspecified Allergic rhinitis seasonality: non-seasonal Qualified Code(s): J30.89 - Other allergic rhinitis Plan: Continue Loratadine 10 mg QD PRN (5) Vitamin D deficiency: Code(s): E55.9 - Vitamin D deficiency, unspecified Category: Medical Plan: Corrected - continue Vitamin D3 2000 units QD (6) Nocturnal leg cramps: Code(s): G47.62 - Sleep related leg cramps Category: Medical Plan: This is most likely due to muscle fatigue as he is on his feet all day while at work Continue Magnesium oxide 400 mg Q HS PRN (7) Mild obstructive sleep apnea: Code(s): G47.33 - Obstructive sleep apnea (adult) (pediatric) Category: Medical Plan: His initial home sleep study done back in August 2024 was inconclusive so he was sent for an in-lab sleep study, which he had last month His in-lab sleep study done in October 2024 revealed findings of mild ESTEBAN AND PLMs He is now using a CPAP device when sleeping at night - states that it took him a while to get used to his device but is now starting to sleep better at night Follow up with Sleep Medicine as scheduled (8) Periodic limb movement disorder (PLMD): Code(s): G47.61 - Periodic limb movement disorder Category: Medical Plan: Patient states that his CPAP therapy has also helped reduce the frequency and occurrence of his PLMs when he is sleeping at night Follow up with Sleep Medicine as scheduled (9) Calculus of urinary tract: Code(s): N20.9 - Urinary calculus, unspecified Category: Medical Qualifiers: Urinary calculus location: upper urinary tract Qualified Code(s): N20.9 - Urinary calculus, unspecified Plan: This was discovered on work ups done at the ER at [facility] when he presented there in April 2024 with sudden onset of right flank pain Patient states that his symptoms have completely subsided and have not recurred since He is advised to continue to increase his oral fluid intake, which may help minimize recurrence of kidney stones (10) Vitiligo: Code(s): L80 - Vitiligo Category: Medical Plan: He was initially tried on Lotrisone cream BID in the past for suspected tinea versicolor, with little improvement Follow up with dermatology as scheduled (11) Overweight (BMI 25.0-29.9): Code(s): E66.3 - Overweight Category: Medical Plan: Reinforced diet/exercise as tolerated/lose weight Plan To return in 6 months for his next annual physical examination Orders: Orders Comprehensive [place]. Panel Fast 6 Months E78.00 - Pure hypercholesterolemia, unspecified, Z00.00 - Encounter for general adult medical examination without abnormal findings Vitamin D 25-OH Total 6 Months E55.9 - Vitamin D deficiency, unspecified, Z00.00 - Encounter for general adult medical examination without abnormal findings Vitamin B12 and Folate 6 Months E53.8 - Deficiency of other specified B group vitamins, Z00.00 - Encounter for general adult medical examination without abnormal findings C Reactive Protein 6 Months R79.89 - Other specified abnormal findings of blood chemistry XR hip LT min 2V 6 Months M25.552 - Pain in left hip, Z00.00 - Encounter for general adult medical examination without abnormal findings Complete Blood Count Auto Diff 6 Months D64.9 - Anemia, unspecified, Z00.00 - Encounter for general adult medical examination without abnormal findings Lipid Panel 6 Months E78.00 - Pure hypercholesterolemia, unspecified, Z00.00 - Encounter for general adult medical examination without abnormal findings TSH reflex Free T4 6 Months E78.00 - Pure hypercholesterolemia, unspecified, Z00.00 - Encounter for general adult medical examination without abnormal findings UA CC w/rflx Micro + Cult 6 Months R30.0 - Dysuria, Z00.00 - Encounter for general adult medical examination without abnormal findings Ferritin 6 Months R79.89 - Other specified abnormal findings of blood chemistry Erythrocyte Sedimentation Rate 6 Months R79.89 - Other specified abnormal findings of blood chemistry
--- OUTSIDE RECORDS SUMMARY | 2025-05-31 09:50 | XMS_ITS | Clinical Summary ---
Author Organization [facility] Address [address] [place] [address] Care Team Providers Care Police Worker Name Role Phone Unavailable Primary Care Provider [...]
== END 2025-05-31 09:55 | disposition home or self-care (01) ==
LOC: HO.HMCH 09:12
PROVIDERS: PCP Internal Medicine; Visit Provider Internal Medicine
DX: I42.8 Other cardiomyopathies (principal); I10 Essential (primary) hypertension; R79.89 Other specified abnormal findings of blood chemistry; J30.89 Other allergic rhinitis; E55.9 Vitamin D deficiency, unspecified; G47.62 Sleep related leg cramps; G47.33 Obstructive sleep apnea (adult) (pediatric); G47.61 Periodic limb movement disorder; N20.9 Urinary calculus, unspecified; L80 Vitiligo; E66.3 Overweight

== ENCOUNTER → 2025-05-31 09:11 | Outpatient (BNVA) | payer OTHER, SELFPAY | PROVIDERS: PCP Internal Medicine; Visit Provider Internal Medicine | DX: I10 Essential (primary) hypertension (principal); I42.8 Other cardiomyopathies; R79.89 Other specified abnormal findings of blood chemistry; J30.89 Other allergic rhinitis; E55.9 Vitamin D deficiency, unspecified; G47.62 Sleep related leg cramps; G47.61 Periodic limb movement disorder; N20.9 Urinary calculus, unspecified; L80 Vitiligo; E66.3 Overweight; Z99.89 Dependence on other enabling machines and devices; Z68.25 Body mass index [BMI] 25.0-25.9, adult | CPT/HCPCS: 96127; 99212 ==